=== PATIENT | male | born 1985 | race African-American/Black ===

== ENCOUNTER 2019-11-26 20:49 | Emergency (ER) | payer SELFPAY ==
[2019-11-26] MEDS ORDERED: METHYLPREDNISOLONE INJ 125 MG/2 ML SDV IV ONE (22:24)
[2019-11-26] MEDS ORDERED: NORMAL SALINE 1000 ML 1,000 ML IV ONE (22:24)
[2019-11-26] MEDS ORDERED: IPRATROPIUM/ALBUTEROL 0.5-2.5 MG/3 ML AMPUL NEB ONE ×2 (22:24→23:40)
[2019-11-26] MEDS ORDERED: ACETAMINOPHEN 325 MG TABLET PO ONE (22:25)
[2019-11-26 22:58] LABS: HEMATOCRIT 39.6 % (37.9-51.0); HEMOGLOBIN 13.4 g/dL (13.5-17.0); MEAN CORPUSCULAR HEMOGLOBIN 29.3 pg (27.0-33.4); MEAN CORPUSCULAR HGB CONC 33.9 g/dL (32.0-36.0); MEAN CORPUSCULAR VOLUME 87 fl (80-97); PLATELET COUNT 397 10^3/uL (150-450); RED BLOOD COUNT 4.57 10^6/uL (4.35-5.55); RED CELL DISTRIBUTION WIDTH 13.9 % (11.5-14.0); WHITE BLOOD COUNT 17.4 10^3/uL (4.0-10.5)
[2019-11-26] MEDS ORDERED: OXYCODONE HCL IR 5 MG TABLET PO ONE (22:59)
--- NOTE | 2019-11-26 22:59 | ER Document Report ---
ED General - General Chief Complaint: Shortness Of Breath Stated Complaint: FEVER Time Seen by Provider: 11/26/19 22:23 Notes: Patient is a 34-year-old male with a history of asthma that comes emergency department for chief complaint of productive cough, body aches, chills. He states he has had a cough and generally felt unwell for about 2 weeks now. He states that he was coughing hard earlier and felt a popping he is worried he might of cracked rib or he might have pneumonia. He denies smoking, recreational drugs, recent travel or sick contacts. He denies sore throat, vomiting, headache, congestion. Only other reported medical history is hypertension. - Related Data Allergies/Adverse Reactions: No Known Allergies Allergy (Unverified 11/26/19 21:49) Past Medical History - General Information source: Patient - Social History Smoking Status: Never Smoker Frequency of alcohol use: None Drug Abuse: None Lives with: Family Family History: Reviewed & Not Pertinent Patient has suicidal ideation: No Patient has homicidal ideation: No - Past Medical History Cardiac Medical History: Reports: Hx Hypertension Pulmonary Medical History: Reports: Hx Asthma - Immunizations Immunizations up to date: Yes Hx Diphtheria, Pertussis, Tetanus Vaccination: Yes Review of Systems - Review of Systems Constitutional: See HPI EENT: No symptoms reported Cardiovascular: No symptoms reported Respiratory: See HPI Gastrointestinal: No symptoms reported Genitourinary: No symptoms reported Male Genitourinary: No symptoms reported Musculoskeletal: No symptoms reported Skin: No symptoms reported Hematologic/Lymphatic: No symptoms reported Neurological/Psychological: No symptoms reported Physical Exam - Vital signs Vitals: Temp Pulse Resp BP Pulse Ox 100.2 F 89 24 H 183/104 H 95 11/26/19 20:57 11/26/19 20:57 11/26/19 20:57 11/26/19 20:57 11/26/19 20:57 - Notes Notes: GENERAL: Alert, interacts well. No acute distress. HEAD: Normocephalic, atraumatic. EYES: Pupils equal, round, and reactive to light. Extraocular movements intact. ENT: Oral mucosa moist, tongue midline. Oropharynx unremarkable. Airway patent. Nares patent, sinuses non-tender, ear canals unremarkable, TM's intact. NECK: Full range of motion. Supple. Trachea midline. No lymphadenopathy. LUNGS: Occasional congested cough, expiratory wheezes throughout, a few scattered rhonchi. No labored breathing or respiratory distress. HEART: Regular rate and rhythm. No murmur ABDOMEN: Soft, non-tender. Non-distended. EXTREMITIES: Moves all 4 extremities spontaneously. No edema, normal radial and dorsalis pedis pulses bilaterally. No cyanosis. BACK: no cervical, thoracic, lumbar midline tenderness. No saddle anesthesia, normal distal neurovascular exam. Moves all extremities in full range of motion. NEUROLOGICAL: Alert and oriented x3. Normal speech. Cranial nerves II through XII grossly intact. Strength 5/5 in all extremities. PSYCH: Normal affect, normal mood. SKIN: Warm, dry, normal turgor. No rashes or lesions noted. Course - Re-evaluation Re-evalutation: Patient with a lot of expiratory wheezes, few scattered rhonchi, frequent congested cough. Borderline temperature here. CBC shows leukocytosis at 17,000 but elevation of eosinophils with a patient who has asthma. After duo nebs and steroids along with IV fluids patient did improve but symptoms did not completely resolved and he still has some wheezing. At one point his oxygen saturation dropped briefly down to 89%, he did clear secretions and cough and this did improve. Chest x-ray indicating pneumonia. I discussed with patient. Because he still has wheezing after multiple treatments, he has intermittent hypoxia, he has pneumonia, I recommended admission. Patient strongly disagrees, states he would prefer to be medicated outpatient, states he feels much better, states he will return if he worsens. Patient did agree to ambulate with pulse ox, he did do well with this although oxygen did not get significantly above 94%. He did not appear to have difficulty or and did not have labored breathing. Patient persists that he would like to be discharged, he will take his medications, and he will return if he worsens in any way. Discussed return precautions. Patient was smiling, talkative, well-appearing at time of discharge. He ambulated without any signs of distress. Coronavirus testing and precautions had been discussed at length and was provided on discharge as well. - Vital Signs Vital signs: Temp Pulse Resp BP Pulse Ox 98.3 F 80 22 H 147/78 H 94 11/27/19 01:57 11/27/19 01:57 11/27/19 01:57 11/27/19 01:57 11/27/19 01:57 - Laboratory Result Diagrams: 11/26/19 22:25 11/26/19 22:25 Laboratory results interpreted by me: 11/26/19 11/26/19 22:25 22:25 WBC 17.4 H Hgb 13.4 L Seg Neuts % (Manual) 33 L Monocytes % (Manual) 2 L Eosinophils % (Manual) 40 H Absolute Eos (Manual) 7.0 H ALT 58 H Discharge - Discharge Clinical Impression: Wheezing, Productive cough Asthma exacerbation Qualifiers: Asthma severity: unspecified severity Asthma persistence: unspecified Qualified Code(s): J45.901 - Unspecified asthma with (acute) exacerbation Pneumonia Qualifiers: Pneumonia type: due to unspecified organism Laterality: left Lung location: lower lobe of lung Qualified Code(s): J18.9 - Pneumonia, unspecified organism Condition: Stable Disposition: HOME, SELF-CARE Additional Instructions: You have declined admission tonight. Your evaluation is consistent with an infection causing asthma exacerbation. You have pneumonia. Take antibiotics as prescribed, prednisone as prescribed, and use your albuterol inhaler with spacer. Drink plenty of fluids and rest. You also may have the coronavirus. You will be contacted with any results for this. See additional instructions below. Follow-up close with primary care. Return at anytime or for any worsening symptoms including spiking fevers, difficulty breathing, or any other concerning or worsening symptoms. As a person under investigation for COVID-19, the [place] Department of Health and Human Services (divison on public health) advises you to adhere to the following guidance until your test results are reported to you. If your test result is positive, you will receive additional information from your provider and your local health department at that time. Remain at home until you are cleared by the health provider or public health authorities. Keep a log of visitors to your home, notify any visitors to your home of your isolation status. If you plan to move to a new address or leave the county, notify the local health department in your County. Call your Doctor or seek care if you have an urgent medical need. Before seeking medical care, call him to get instructions from the provider before arriving at the medical office, clinic, or hospital. Notify them that you are being tested for the virus (COVID-19) so that arrangements can be made, as necessary, to prevent transmission to others in the healthcare setting. Next, notify the local health department in your county. If a medical emergency arises and you need to call 911, inform the first responders that you are being tested for the virus that causes COVID-19. Next, notify the local health department in your county. Prescriptions: Prednisone [Deltasone 20 mg Tablet] 3 tab PO DAILY 5 Days #15 tablet Albuterol Sulfate [Proair HFA Inhalation Aerosol 8.5 gm MDI] 2 puff IH Q4H PRN #1 mdi PRN Reason: Doxycycline Hyclate [Vibramycin 100 mg Tablet] 100 mg PO BID 7 Days #14 tablet
[2019-11-26 23:11] LABS: ALBUMIN 4.1 g/dL (3.5-5.0); ALKALINE PHOSPHATASE 107 U/L (38-126); ANION GAP 6 (5-19); ASPARTATE AMINO TRANSFERASE 44 U/L (17-59); BILIRUBIN,TOTAL 0.4 mg/dL (0.2-1.3); BLOOD UREA NITROGEN 7 mg/dL (7-20); CALCIUM 9.9 mg/dL (8.4-10.2); CARBON DIOXIDE 30 mmol/L (22-30); CHLORIDE 102 mmol/L (98-107); GLUCOSE 95 mg/dL (75-110); POTASSIUM 4.2 mmol/L (3.6-5.0); TOTAL PROTEIN 7.9 g/dL (6.3-8.2)
[2019-11-26 23:21] LABS: A TYPE INFLUENZA AG NEGATIVE (NEGATIVE); B INFLUENZA AG NEGATIVE (NEGATIVE)
[2019-11-26 23:22] LABS: ABSOLUTE LYMPHOCYTES# (MANUAL) 4.2 10^3/uL (0.5-4.7); ABSOLUTE MONOCYTES # (MANUAL) 0.3 10^3/uL (0.1-1.4); BASOPHILS % (MANUAL) 1 % (0-2); LYMPHOCYTES % (MANUAL) 24 % (13-45); MONOCYTES % (MANUAL) 2 % (3-13); SEGMENTED NEUTROPHILS % (MAN) 33 % (42-78); TOTAL CELLS COUNTED 100
[2019-11-26 23:25] LABS: PLATELET COMMENT ADEQUATE
[2019-11-26 23:26] LABS: RBC MORPHOLOGY COMMENT NORMO-CYTIC/CHROMIC
[2019-11-26 23:27] LABS: EOSINOPHILS % (MANUAL) 40 % (0-6)
--- NOTE | 2019-11-26 23:37 | RADIOLOGY REPORT (SQ) ---
EXAM DESCRIPTION: X-RAY CHEST- One View CLINICAL HISTORY: Fever and cough COMPARISON: None available TECHNIQUE: Single view of the chest. FINDINGS: There are low lung volumes with compressive changes. Patchy scattered opacities, predominantly affecting the left lower lung zone, are nonspecific in nature. The pulmonary vascularity is normal. The cardiomediastinal silhouette is within normal limits. No suspicious lytic or blastic osseous lesions are identified. IMPRESSION: Patchy opacities predominantly affecting the left lower lung zone. Differential diagnosis includes viral infections.
[2019-11-27] MEDS ORDERED: CEFTRIAXONE 1 GM/D5W RTU 1 GM/50 ML RTUPB IV ONE (00:55)
[2019-11-27] MEDS ORDERED: DOXYCYCLINE HYCLATE 100 MG TABLET PO ONE (00:55)
[2019-11-27 02:05] VITALS: BP 147/78
[2019-11-27 10:33] LABS: PATH REVIEW PATHOLOGIST REVIEWED
== END 2019-11-27 02:45 | disposition home or self-care (01) ==
LOC: ER 20:49
DX: J18.9 Pneumonia, unspecified organism (principal); J45.901 Unspecified asthma with (acute) exacerbation; R05 Cough; R06.02 Shortness of breath; R50.9 Fever, unspecified; M79.10 Myalgia, unspecified site; R09.89 Other specified symptoms and signs involving the circulatory and respiratory systems; I10 Essential (primary) hypertension; Z20.828 Contact with and (suspected) exposure to other viral communicable diseases
CPT/HCPCS: 94640 ×2; 99283; 96361; 96375; 96365; 36415; 87040; 87070; 87880; 85025; 87635; 80053; 87804; 71045; J2930; J7030; J0696; J7620 ×2